=== PATIENT | male | born 1965 | race Caucasian/White ===

== ENCOUNTER → 2023-04-29 | Outpatient (CLI) | payer BC | LOC: COL.RAD 12:15 | DX: R59.1 Generalized enlarged lymph nodes (principal) ==

== ENCOUNTER → 2023-05-08 | Outpatient (CLI) | payer BC ==
[~2023-05-08] VITALS: Ht 185.4 cm; Wt 95.4 kg
[~2023-05-08] MED LIST: Iohexol 300 - 100 ML VIAL IV ONE; NS 100 ML IV SCH
[2023-05-08 07:33] VITALS: BP 143/103; PULSE 86; TEMP 97.3
[2023-05-08 08:30] VITALS: BP 146/95; PULSE 81
== END ==
LOC: COL.RAD 06:43
DX: R59.0 Localized enlarged lymph nodes (principal)
CPT/HCPCS: Q9967